=== PATIENT | male | born 1985 | race African-American/Black ===

== ENCOUNTER 2019-11-17 10:27 | Emergency (ER) | payer SELFPAY ==
--- NOTE | 2019-11-17 11:00 | PDOC ---
Attending Attestation - Resident Resident Name: Lucio Lawrence - ED Attending Attestation I have performed the following: I have examined & evaluated the patient, The case was reviewed & discussed with the resident, I agree w/resident's findings & plan, Exceptions are as noted - HPI HPI: 11/17/19 11:19 34 years old with no significant past medical history woke up after having a bad dream with some shortness of breath which is still resolved. Patient does not smoke has no history of hypertension diabetes high cholesterol no history of coronary artery disease in his family no travel no sick contacts no recent fever chills cough no chest pain shortness of breath was not exertional and has since resolved - Physicial Exam PE: 11/17/19 11:20 Vitals: Triage Vital signs reviewed General Appearance: No acute distress, well nourished well developed, Head: Atraumatic, Cardiac: Regular rate and rhythym, no murmurs, no rubs, no gallops, Lungs: Clear to auscultation bilateral, good air movement bilaterally, Abdomen: Soft, non distended, normal bowel sounds, non tender to palpation Extremities: Full range of motion to all extremities, no cyanosis, clubbing, or edema Skin: Warm and dry, no rashes or lesions, no rash, no petechiae Psych: Normal mood, normal affect - Medical Decision Making 11/17/19 11:22 Well-appearing no apparent distress awoke after bedroom with shortness of breath which is since resolved no cardiac or PE risk factors patient completely asymptomatic no exertional component. Offered patient EKG chest x-ray and labs patient states he will follow-up with Dr. Lloyd today he will return to the ED for any severe worsening symptoms or for any concerns.
[2019-11-17] MEDS ORDERED: ALBUTEROL SO4 2.5/IPRATROPIUM 0.5 INH SOL 3 ML VIAL.NEB. NEB ONE (11:02)
--- NOTE | 2019-11-17 11:06 | PDOC ---
History of Present Illness - General Chief Complaint: Shortness of Breath Stated Complaint: SHORT OF BREATH Time Seen by Provider: 11/17/19 10:35 - History of Present Illness Initial Comments: Griffin Tobar is a 34 y/o male with no reported PMH presenting today after waking up with mild shortness of breath. Reports associated mid sternal chest tightness. Reports that he woke up feeling anxious this morning and had a dream about his brother passing away. No FLETCHER or orthopnea. No fever. No chills. No cough. No abd pain. No dysuria/diarrhea. No headache/dizziness. Reports that at present SOB has resolved. FamHx: no hx of cardiac diseaes SocHx: never smoker Past History - Past Medical History Allergies/Adverse Reactions: Allergies Allergy/AdvReac Type Severity Reaction Status Date / Time No Known Allergies Allergy Verified 11/17/19 10:32 Home Medications: Ambulatory Orders NK [No Known Home Medication] 11/17/19 Review of Systems - Review of Systems Comments:: GENERAL/CONSTITUTIONAL: No fever or chills. No weakness._ HEAD, EYES, EARS, NOSE AND THROAT: No change in vision. No change in hearing. No sore throat._ CARDIOVASCULAR: Reports mild chest tightness and shortness of breath (resolved). RESPIRATORY: Denies cough, hemoptysis_ GASTROINTESTINAL: No nausea, vomiting, diarrhea or constipation._ GENITOURINARY: No dysuria, frequency, or change in urination._ MUSCULOSKELETAL: No joint or muscle swelling or pain. No neck or back pain._ SKIN: No rash_ NEUROLOGIC: No headache, vertigo, loss of consciousness, or change in strength/sensation._ ENDOCRINE: No increased thirst. No abnormal weight change_ HEMATOLOGIC/LYMPHATIC: No anemia, easy bleeding, or history of blood clots._ ALLERGIC/IMMUNOLOGIC: No hives or skin allergy._ *Physical Exam - Physical Exam GENERAL: Awake, alert, and oriented to person/place/time, in no acute distress_ HEAD: No signs of trauma, normocephalic, atraumatic _ EYES: PERRLA, EOMI, sclera anicteric, conjunctiva clear_ ENT: Hearing grossly normal, nares patent, oropharynx clear without exudates. No uvular deviation. Moist mucosa_ NECK: Normal ROM, supple, no lymphadenopathy, JVD, or masses_ LUNGS: No distress, speaks in full sentences, clear to auscultation bilaterally _ HEART: Regular rate and rhythm, normal S1 and S2, no murmurs appreciated, peripheral pulses normal and equal bilaterally._ ABDOMEN: Soft, nontender, normoactive bowel sounds. No guarding, no rebound. No masses_ EXTREMITIES: Normal inspection, Normal range of motion, no edema. No clubbing or cyanosis_ NEUROLOGICAL: Cranial nerves II through XII grossly intact. Normal speech, normal gait, no focal sensorimotor deficits _ SKIN: Warm, Dry, normal turgor, no rashes or lesions noted_ ED Treatment Course - RADIOLOGY Radiology Studies Ordered: Category Date Time Status CHEST PA & LAT [RAD] Stat Radiology 11/17/19 11:02 Ordered Medical Decision Making - Medical Decision Making 11/17/19 11:05 34M no reported pmh presenting today with mild shortness of breath and mid sternal chest tightness this morning that has since resolved. -cbc -duonebs 11/17/19 11:18 D/w the pt the low risk factors of his disease and presentation. His shortness of breath has resolved. Plan to d/c home with PCP f/u. All questions answered. Return precautions given. Pt verbalized understanding and agreement with plan. Discharge - Discharge Information Problems reviewed: Yes Clinical Impression/Diagnosis: Shortness of breath Condition: Good Disposition: HOME - Admission No - Follow up/Referral Referrals: Esdras Lloyd MD [Staff Physician] - - Patient Discharge Instructions Additional Instructions: Please make a follow up appointment with your PCP Dr. lLoyd. If you experience any new, worsening, or concerning symptoms, including worsening chest pain, difficulty breathing, shortness of breath when walking, high fever, or any other concerns, please return to the emergency department. - Post Discharge Activity
[2019-11-17 11:20] VITALS: BP 190/98; PULSE 92; TEMP 98.1; BMI 29.1
== END 2019-11-17 11:25 | disposition home or self-care (01) ==
LOC: FER 10:27
DX: R06.02 Shortness of breath (principal)
CPT/HCPCS: 99282-25